=== PATIENT | male | born 1985 | race African-American/Black ===

== ENCOUNTER 2016-07-13 15:52 | Emergency (ER) | payer SELFPAY ==
[~2016-07-13 15:52] MED LIST: AUGMENTIN 875-1 EAC2 PO; INDOCIN PO; NO HOME MEDICATION XX; PERCOCET 5-3251 EACH PO; PERIDEX480 ML MM; ROXICET 5/325500 ML PO; XANAX0.25 M1 PO
[2016-07-13] MEDS ORDERED: PROVENTIL HFA6.7 G1 INH (15:57)
[2016-07-13 17:47] LABS: URINE BILIRUBIN NEGATIVE (NEG); URINE BLOOD NEGATIVE (NEG); URINE GLUCOSE (UA) NEGATIVE (NEG); URINE KETONE SMALL (NEG); URINE LEUKOCYTE ESTERASE POSITIVE (NEG); URINE NITRITE NEGATIVE (NEG); URINE PROTEIN MODERATE (NEG)
[2016-07-13 17:48] LABS: URINE APPEARANCE CLEAR; URINE COLOR DARK YELLOW
[2016-07-13 17:53] LABS: BASO % 0.1 % (0-2); HCT-HEMATOCRIT 45.6 % (36.0-53.5); HGB-HEMOGLOBIN 15.6 gm/dl (13.5-17.0); IMMATURE GRANULOCYTES ABSOLUTE 0.02 tho/cmm (0-0.03); IMMATURE GRANULOCYTES PERCENT 0.2 % (0-0.3); LYMPH % 53.9 % (20-45); MCHC MEAN CORPUSCULAR HGB CONC 34.2 % (32.0-36.0); MCV (MEAN CELL VOLUME) 90.7 fl (82.0-96.0); MONO % 5.9 % (0-12); NEUTROPHIL ABSOLUTE COUNT 3.8 tho/cmm (1.6-8.0); NEUTROPHIL-AUTOMATED 3.8 tho/cmm (1.6-8.0); NEUTROPHILS % 38.9 % (40-80); PLATELET COUNT 256 tho/cmm (150-450); RED BLOOD COUNT 5.03 mil/cmm (4.40-5.70); WHITE BLOOD COUNT 9.8 tho/cmm (4.0-10.0)
[2016-07-13 17:54] LABS: EOSINOPHIL ABSOLUTE COUNT 0.1 tho/cmm (0.0-0.7); LYMPH ABSOLUTE COUNT 5.3 tho/cmm (0.8-4.5); MONOCYTE ABSOLUTE COUNT 0.6 tho/cmm (0.0-1.2)
[2016-07-13 17:54] LABS: URINE MUCUS 1+; URINE RBC 0-1 /[HPF] (0-5)
[2016-07-13 18:08] LABS: ALB/GLOB RATIO 1.3 (0.8-2.0); ALKALINE PHOSPHATASE 61 U/L (33-138); BILIRUBIN,TOTAL 0.4 mg/dl (0.0-1.5); BLOOD UREA NITROGEN 17 mg/dl (6-24); CARBON DIOXIDE-VENOUS 26 mmol/L (22-32); CHLORIDE 113 mmol/l (96-110); GLUCOSE 95 mg/dL (70-110); SODIUM 148 mmol/L (135-145); eGFR VALUE FOR BLACK 84 mL/Min
[2016-07-13 18:09] LABS: ALT/SGPT 22 U/L (12-78); ANION GAP 13 mmol/L (0-20); AST/SGOT 42 U/L (10-40); MAGNESIUM 2.3 mg/dl (1.3-2.6)
[2016-07-13 18:39] LABS: PROCALCITONIN <0.05 ng/ml (0.05-0.09)
== END 2016-07-13 20:08 ==
LOC: EDMED 15:52
PROVIDERS: Family Medicine
DX: T78.40XA Allergy, unspecified, initial encounter (principal); F19.10 Other psychoactive substance abuse, uncomplicated; J45.909 Unspecified asthma, uncomplicated; F90.9 Attention-deficit hyperactivity disorder, unspecified type; Z79.51 Long term (current) use of inhaled steroids; F17.210 Nicotine dependence, cigarettes, uncomplicated
CPT/HCPCS: J7030